=== PATIENT | male | born 1990 | race Hispanic/Latino ===

== ENCOUNTER 2021-01-04 14:14 | Observation (INO) | payer SELFPAY ==
[2021-01-04] MEDS ORDERED: Dexamethasone 4 MG TAB ONE ×2 (14:31)
[2021-01-04] MEDS ORDERED: Ondansetron PF 4 MG/2 ML Vial ONE (14:32)
[2021-01-04] MEDS ORDERED: Morphine 4 MG/ML VIAL ONE ×2 (14:32→15:43)
[2021-01-04] MEDS ORDERED: Clindamycin/D5W 900 mg/50 ml Premix Bag ONE (14:33)
[2021-01-04] MEDS ORDERED: Iopamidol-370 76% 500 ML 1 ML ONE (14:53)
[2021-01-04 14:58] LABS: #Lymphocytes 1.7 thou/uL (1.20-3.40); #Monocytes 1.2 thou/uL (0.11-0.59); #Neutrophils 15.6 thou/uL (1.40-6.50); %Eosinophils 0.1 % (0.0-10.0); %Lymphocytes 9.2 % (21.0-51.0); %Monocytes 6.6 % (0.0-10.0); %Neutrophils 84.1 % (42.0-75.0); Hemoglobin 15.8 g/dL (14.0-18.0); Mean Corpuscular HGB CONC 33.2 g/dL (32.0-36.0); Mean Corpuscular Volume 90.6 fL (78.0-98.0); Mean Platelet Volume 6.1 fL (7.4-10.4); Platelet Count 392 thou/uL (130-400); RBC Distribution Width 11.8 % (11.5-14.5); Red Blood Cell (RBC) Count 5.25 mill/uL (4.70-6.10); White Blood Cell (WBC) Count 18.5 thou/uL (4.8-10.8)
[2021-01-04 15:18] LABS: ALT (SGPT) 45 U/L (8-55); AST (SGOT) 29 U/L (5-34); Albumin 4.5 g/dL (3.5-5.0); Alkaline Phosphatase 182 U/L (40-110); Anion Gap 16 mmol/L (10-20); BUN (Urea Nitrogen) 11 mg/dL (8.9-20.6); Bilirubin, Total 1.1 mg/dL (0.2-1.2); Calc. Creatinine Clearance 0 mL/min (70-130); Calcium 9.8 mg/dL (7.8-10.44); Carbon Dioxide 23 mmol/L (22-29); Chloride 102 mmol/L (98-107); Globulin 3.9 g/dL (2.4-3.5); Glucose 111 mg/dL (70-105); Potassium 4.3 mmol/L (3.5-5.1); Protein, Total 8.4 g/dL (6.0-8.3); Sodium 137 mmol/L (136-145)
[2021-01-04] MEDS ORDERED: Lidocaine 1% (PF) 30 ML VIAL ONE (15:28)
[2021-01-04] MEDS ORDERED: Benzocaine 20% Spray 60 ML CAN ONE (15:32)
[2021-01-04] MEDS ORDERED: Acetaminophen 500 MG TAB ONE (15:34)
[2021-01-04] MEDS ORDERED: Ibuprofen 800 MG TAB ONE (15:34)
[2021-01-04] MEDS ORDERED: Midazolam HCl 2 mg/2 ml Vial ONE (15:43)
[2021-01-04] MEDS ORDERED: Dexamethasone 4 mg/ml Vial ONE (17:01)
[2021-01-04] MEDS ORDERED: Clindamycin/D5W 600 mg/50 ml Premix Bag ONE (20:56)
[2021-01-04] MEDS ORDERED: Morphine 4 MG/ML VIAL SLOW IVP PRN (21:25)
[2021-01-04] MEDS ORDERED: Ondansetron PF 4 MG/2 ML Vial IVP PRN (21:30)
[2021-01-04] MEDS ORDERED: Acetaminophen 325 MG TAB PO PRN (21:30)
[2021-01-04] MEDS ORDERED: Ondansetron ODT 4 MG TAB SL PRN (21:30)
[2021-01-04 22:18] VITALS: BMI 31.2
[2021-01-04] MEDS: Sodium Chloride 0.9% 1,000 ML IV SCH (23:05)
[2021-01-05] MEDS ORDERED: Piperacillin/Tazobactam 3.375 GM in Sodium Chloride 0.9% 100 ML IVPB SCH ×2 (02:15→06:00)
[2021-01-05] MEDS ORDERED: Clindamycin/D5W 600 MG in Premix Bag 1 BAG IVPB SCH (03:00)
[2021-01-05] MEDS: Sodium Chloride 0.9% 1,000 ML IV SCH ×3 (03:46→13:09)
[2021-01-05 06:02] LABS: #Monocytes 0.3 thou/uL (0.11-0.59); #Neutrophils 17.1 thou/uL (1.40-6.50); %Basophils 0.1 % (0.0-1.0); %Eosinophils 0.1 % (0.0-10.0); %Lymphocytes 5.2 % (21.0-51.0); %Monocytes 1.7 % (0.0-10.0); %Neutrophils 92.9 % (42.0-75.0); Hemoglobin 14.6 g/dL (14.0-18.0); Mean Corpuscular HGB CONC 34.4 g/dL (32.0-36.0); Mean Corpuscular Hemoglobin 31.3 pg (27.0-31.0); Mean Platelet Volume 6.3 fL (7.4-10.4); Platelet Count 355 thou/uL (130-400); RBC Distribution Width 11.6 % (11.5-14.5); Red Blood Cell (RBC) Count 4.66 mill/uL (4.70-6.10); White Blood Cell (WBC) Count 18.4 thou/uL (4.8-10.8)
[2021-01-05 06:06] LABS: Hemoglobin A1c 4.9 % (4.0-6.0)
[2021-01-05 06:14] LABS: Anion Gap 13 mmol/L (10-20); BUN (Urea Nitrogen) 8 mg/dL (8.9-20.6); Calc. Creatinine Clearance 170 mL/min (70-130); Carbon Dioxide 25 mmol/L (22-29); Chloride 106 mmol/L (98-107); Glucose 135 mg/dL (70-105); Potassium 4.1 mmol/L (3.5-5.1); Sodium 140 mmol/L (136-145)
[2021-01-05] MEDS ORDERED: Ampicillin/Sulbactam 3 GM in Sodium Chloride 0.9% 100 ML IVPB SCH (12:00)
[2021-01-05 12:07] VITALS: BP 125/80; TEMP 97.8
[2021-01-05 12:12] LABS: SARS-CoV-2 PCR by NAA Not Detected (NotDetected)
[2021-01-07] MEDS ORDERED: FLU VACC QS2021-22(6MOS UP)/PF 60 MCG/0.5 ML SYRINGE IM ONE (09:00)
== END 2021-01-05 15:00 | disposition home or self-care (01) ==
LOC: ERS 14:14 → SURG A 19:24
PROVIDERS: ADMIT Student in an Organized Health Care Education/Training Program; ATTEND Internal Medicine
DX: A41.9 Sepsis, unspecified organism (principal); J03.90 Acute tonsillitis, unspecified; F17.210 Nicotine dependence, cigarettes, uncomplicated; Z20.822 Contact with and (suspected) exposure to COVID-19
CPT/HCPCS: 10060; 36415; 70491; 80048; 80053; 83036; 83605; 85025; 87040; 87070; 87077; 87205; 96365; 96366; 96375; 96376; G0378; J1100; J2001; J2250; J2270; J2405; J2543; J3490; J7050; J8540; Q9967; U0003; U0005